=== PATIENT | male | born 2005 | race Two or more races ===

== ENCOUNTER 2024-07-07 14:01 | Emergency (ER) | payer MEDICAID, SELFPAY ==
[2024-07-07 14:06] VITALS: BP 134/77; PULSE 92; RESP 18; TEMP 36.9; O2SAT 99
--- NOTE | 2024-07-07 14:13 | XR_ITS ---
EXAMINATION: Ankle, right . Technique: Ankle AP, oblique, lateral 3 views Date and time of exam: July 07, 2024 1442 hours INDICATIONS: Twisting injury to the ankle today, ankle pain. FINDINGS: Prominent lateral malleolar soft tissue swelling. No fracture or dislocation IMPRESSION: No fracture or dislocation
--- NOTE | 2024-07-07 14:13 | XR_ITS ---
Examination: Foot, right, 3 views Technique: AP, oblique, lateral views foot, 3 views Date and time of exam: July 07, 2024 1442 hours INDICATIONS: Twisting injury to the foot today, foot pain. FINDINGS: No acute fracture. No dislocation No foreign body IMPRESSION: No acute fracture
--- NOTE | 2024-07-07 14:14 | EDNOTE_ITS ---
Lower Extremity Injury RME/HPI General Chief Complaint: Ankle/Foot Injury Stated Complaint: Right ankle injury last night Time Seen by Provider: 07/07/24 14:13 Source: patient Arrival date/time: 07/07/24 14:01 19-year-old male with no known medical history presents to the emergency room w ith a chief complaint of right ankle pain and tenderness after playing basketball and falling on it last night. Mode of arrival: ambulatory Limitations: no limitations Related Data Previous Rx's ?Medication ?Instructions ?Recorded epinephrine 0.3 mg/0.3 mL See Rx Instructions .Route 0 08/03/21 injection, auto-injector (EpiPen .COMPLEX PRN hypersen sitivity 2-Luis Enrique) reaction #2 ea ibuprofen 600 mg tablet 600 mg PO Q8H PRN fever or p ain 07/07/24 #20 tabs Allergies Allergy/AdvReac Type Severity Reaction Status Date / Time No Known Allergies Allergy Verified 08/03/21 23:24 Review of Systems Review of Systems Systems Reviewed: All systems reviewed, normal except as documented Constitutional Constitutional: Reports system reviewed and no additional complaints, except as documented, Denies fatigue, Denies fever(s), Denies headache(s) and Denies weakness Eyes Eyes: Reports system reviewed and no additional complaints, except as documented, Denies blurry vision and Denies change in vision ENT Ears, Nose, Mouth, and Throat: Reports system reviewed and no additional complaints, except as documented, Denies otalgia, Denies headache(s), Denies nasal congestion, Denies throat swelling and Denies vertigo Cardiovascular Cardiovascular: Reports system reviewed and no additional complaints, except as documented, Denies chest pain, Denies dyspnea and Denies dyspnea on exertion Respiratory Respiratory: Reports system reviewed and no additional complaints, except as documented, Denies chest congestion, Denies cough, Denies dyspnea, Denies dyspnea on exertion and Denies wheezing Gastrointestinal Gastrointestinal: Reports system reviewed and no additional complaints, except as documented, Denies abdominal pain, Denies cramping, Denies nausea and Denies vomiting Genitourinary Genitourinary: Reports system reviewed and no additional complaints, except as documented, Denies dysuria and Denies hematuria Musculoskeletal Musculoskeletal: Reports system reviewed and no additional complaints, except as documented and Denies back pain Integumentary/Breasts Skin/Breast: Reports system reviewed and no additional complaints, except as documented and Denies wounds Neurologic Neurologic: Reports system reviewed and no additional complaints, except as documented, Denies confusion, Denies headache(s), Denies lack of coordination, Denies vertigo and Denies weakness Psychiatric Psychiatric: Reports system reviewed and no additional complaints, except as documented, Denies anxiety, Denies confusion, Denies depression, Denies paranoia, Denies suicidal ideation and Denies tactile hallucinations Endocrine Endocrine: Reports system reviewed and no additional complaints, except as documented and Denies fatigue Hematologic/Lymphatic Hematologic/Lymphatic: Reports system reviewed and no additional complaints, except as documented and Denies lymphadenopathy Allergic/Immunologic Allergic/Immunologic: Reports system reviewed and no additional complaints, except as documented, Denies throat swelling, Denies urticaria and Denies wheezing ED Exam General Limitations: Present no limitations General appearance: Present alert and in no apparent distress Head Head exam: Present atraumatic Eye Eye exam: Present normal appearance, PERRL and EOMI ENT ENT exam: Present normal exam, normal oropharynx and mucous membranes moist Neck Neck exam: Present normal inspection, full ROM and trachea midline Chest Chest inspection: Present normal inspection and symmetric chest wall rise Respiratory Respiratory exam: Present normal lung sounds bilaterally Cardiovascular Cardiovascular exam: Present regular rate, normal rhythm and normal heart sounds Abdominal Exam Abdominal exam: Present soft and normal bowel sounds Extremities Exam Extremities exam: Present normal inspection and full ROM Expanded Lower Extremity Exam Hip/Pelvis exam: Present normal inspection Upper leg exam: Present normal inspection Knee exam: Present normal inspection Lower leg exam: Present normal inspection Ankle exam: Present tenderness and swelling; Absent full ROM Back Exam Back exam: Present normal inspection and full ROM Neurological Exam Neurological exam: Present alert, oriented X3 and CN II-XII intact Psychiatric Psychiatric exam: Present normal affect and normal mood Skin Skin exam: Present warm, dry, intact and normal color Course Quality Measures none Orders Category Date Time Status kingsley wrap [Splint / Immobilizer] STAT Care 07/07/24 14:14 Completed XR ankle comp RT min 3V Stat Exams 07/07/24 14:13 Completed XR foot comp RT min 3V Stat Exams 07/07/24 14:13 Completed Vital Signs Vital signs: Vital Signs Temperature 98.5 F 07/07/24 14:06 Pulse Rate 92 07/07/24 14:06 Respiratory Rate 18 07/07/24 14:06 Blood Pressure 134/77 H 07/07/24 14:06 Pulse Oximetry (%) 99 07/07/24 14:06 Oxygen Delivery Method Room Air 07/07/24 14:06 O2 saturation 99% within normal limits Extremity Injury, Lower MDM Narrative MDM Narrative:: 19-year-old male with no known medical history presents to the emergency room with a chief complaint of right ankle pain and tenderness after playing basketball and falling on it last night. Patient is hemodynamically stable and in no apparent distress Physical examination shows pain and tenderness to the right ankle with palpation patient has a limited range of motion. X-ray was completed and is negative for any acute fracture or dislocation. An Kingsley wrap was given to the patient patient was given crutches Patient was discharged and educated to follow-up with primary care provider and return to the emergency room for any evidence of worsening signs or symptoms Patient data External records reviewed:: [facility] previous records Clinical information provided by:: patient Social determinants that could affect healthcare access:: none Patient has the following chronic illnesses:: No chronic illness How is presenting disease/condition affected by chronic disease/condition?: no chronic disease Evaluation data The following diagnostics were reviewed and interpreted by me:: lab results and radiology exam(s) Lab and/or radiology exams considered but not ordered:: Labs and radiology exams considered and ordered Interpretation Summary: N/A Medications / Prescriptions Medications or Prescriptions considered but not ordered:: N/A Medication administrations:: Rx given Consultations Consultation(s) initiated? (list below): No Diagnosis Extremity Injury, Lower Differential Diagnosis: ankle sprain and strain and ankle fracture Most likely diagnosis given after review of the tests above:: Ankle sprain and strain Admission Indicated Admission indicated?: not indicated Admission Request Was there a request for admission?: No Disposition Plan Disposition Plan: Discharge Discharge Attestation Discharge Attestation: The patient and all family members were given an opportunity to ask questions and understood the discharge instructions. Discharge instructions specifically effects, indications for sooner follow up or return to the emergency department, and the expected course of current diagnosis. Patient condition: Stable Discharge Plan Plan Patient Disposition: HOME (Self Care) Disposition Comment: Stable Prescriptions/Referrals Prescriptions/Med Rec: New ibuprofen 600 mg tablet 600 mg PO Q8H PRN (Reason: fever or pain) Qty: 20 0RF No Action epinephrine [EpiPen 2-Luis Enrique] 0.3 mg/0.3 mL auto-injector See Rx Instructions .ROUTE .COMPLEX PRN (Reason: hypersensitivity reaction) Qty: 2 0RF Rx Instructions: Use as directed on pack PRN Referrals: No Primary/Family,Physician [Primary Care Provider] - In 1 week Problem List Clinical Impression: Ankle sprain and strain Patient/Caregiver Discharge Instructions Education Materials: ED KINGSLEY Wrap, ED Ankle Sprain (Adult) Additional Instructions: Please follow-up with your primary care provider in the next 24 to 48 hours. X-rays were completed and there is no acute fracture or dislocation of your ankle. An Kingsley wrap was placed for comfort please rest elevate and ice the injury. For any evidence of worsening signs or symptoms please return to the emergency room immediately Print Language: Lithuanian Stand Alone Forms: Dianne Award Info., Patient Portal Info Letter PA/FINANCIAL PLANNING ADVISOR Supervising Physician PA/MONO Supervising Physician: Dr. Campuzano
== END 2024-07-07 16:16 | disposition home or self-care (01) ==
PROVIDERS: Emergency Provider Emergency Medicine
DX: S96.911A Strain of unspecified muscle and tendon at ankle and foot level, right foot, initial encounter (principal); S93.401A Sprain of unspecified ligament of right ankle, initial encounter; Y93.67 Activity, basketball; W19.XXXA Unspecified fall, initial encounter
CPT/HCPCS: 73610; 73630; 99283